=== PATIENT | male | born 1955 | race Two or more races ===

== ENCOUNTER 2018-06-07 18:46 | Emergency (ER) | payer MEDICAID, OTHER, SELFPAY ==
[~2018-06-07] VITALS: Ht 172.7 cm; Wt 91.8 kg
[2018-06-07] MEDS ORDERED: ONDANSETRON ODT 4 MG ONE ×2 (19:13→19:50)
[2018-06-07] MEDS ORDERED: ONDANSETRON ODT 4 MG PO ONE (19:30)
[2018-06-07] MEDS ORDERED: SODIUM CHLORIDE FLUSH 10ML SYR IVF ONE (19:30)
[2018-06-07 19:40] LABS: BASOPHILS # (AUTO) 0.03 x10^3/uL (0-0.1); BASOPHILS % (AUTO) 0 % (0-1); EOSINOPHILS # (AUTO) 0.03 x10^3/uL (0-0.4); EOSINOPHILS % (AUTO) 0 % (1-7); LYMPHOCYTES # (AUTO) 2.28 x10^3/uL (1-3.4); LYMPHOCYTES % (AUTO) 20 % (22-44); MD NO; MEAN CORPUSCULAR HEMOGLOBIN 30.7 pg (27.5-34.5); MEAN CORPUSCULAR HGB CONC 34.6 g/dL (33.2-36.2); MEAN CORPUSCULAR VOLUME 88.8 fL (81-97); MONOCYTES # (AUTO) 0.71 x10^3/uL (0.2-0.8); MONOCYTES % (AUTO) 6 % (2-9); NEUTROPHILS # (AUTO) 8.23 x10^3/uL (1.8-6.8); NEUTROPHILS % (AUTO) 73 % (42-75); PLATELET COUNT 381 x10^3/uL (130-400); RED BLOOD COUNT 5.17 x10^6/uL (4.38-5.82); RED CELL DISTRIBUTION WIDTH 14.6 % (9.4-14.8)
[2018-06-07 19:41] LABS: ALANINE AMINOTRANSFERASE 56 U/L (12-78); ALBUMIN 3.8 g/dL (3.4-5.0); ANION GAP 10 mmol/L (5-15); CALCIUM 8.8 mg/dL (8.5-10.1); CHLORIDE 104 mmol/L (98-107)
[2018-06-07 19:46] LABS: ALKALINE PHOSPHATASE 84 U/L (45-117); BILIRUBIN,TOTAL 0.4 mg/dL (0.2-1.0); TOTAL PROTEIN 7.5 g/dL (6.4-8.2); TROPONIN I < 0.015 ng/mL (0.000-0.045)
[2018-06-07] MEDS ORDERED: OMEP-110 PO (20:10)
[2018-06-07] MEDS ORDERED: FLUO20CA8 PO (20:16)
[2018-06-07] MEDS ORDERED: METF500T27 PO (20:16)
[2018-06-07] MEDS ORDERED: ASPI-496 PO (20:16)
[2018-06-07] MEDS ORDERED: PSEU120T10 PO (20:16)
[2018-06-07] MEDS ORDERED: GLIM2TAB2 PO (20:16)
[2018-06-07] MEDS ORDERED: PSEU30TA24 PO (20:16)
[2018-06-07] MEDS ORDERED: LISI-167 PO (20:16)
--- NOTE | 2018-06-07 20:58 | NUR ---
PT AMBULATED TO BR WITHOUT DIFFICULTY.
--- NOTE | 2018-06-07 21:57 | NUR ---
SBAR report received from RNs, Flakita and Hattie. Pt resting on ariella, daughter at bedside.
[2018-06-07 22:08] LABS: CULTURE INDICATED? NO; MICROSCOPIC INDICATED
[2018-06-07 22:46] VITALS: BP 117/64
--- NOTE | 2018-06-07 23:19 | NUR ---
Patient/Caregiver given discharge instructions and they have confirmed that they understand the instructions. Patient ambulatory with steady gait.
== END 2018-06-07 23:20 | disposition home or self-care (01) ==
LOC: ED 22:58
DX: J06.9 Acute upper respiratory infection, unspecified (principal); R53.1 Weakness; R11.2 Nausea with vomiting, unspecified
CPT/HCPCS: 36415; 71045; 80053; 81001; 84484; 85025; 93005; 99284; Q0162